=== PATIENT | female | born 1980 ===

== ENCOUNTER 2017-08-16 09:51 | Emergency (ER) | payer OTHER ==
--- NOTE | 2017-08-16 10:18 | C.PDOC ---
History Of Present Illness <Sergo Fisher - Last Filed: 08/16/17 11:46> <Jalyn Singleton - Last Filed: 08/16/17 12:10> 37 y/o F with no pmhx who is presenting with RLE ankle injury. Pt was hiking in [facility] 9 days ago and reports that she tripped and fell. She describes the injury as her toes getting caught on the floor and her falling forward, with hyper plantar flexion injury. She was seen by a medic in [facility] and was told to rest, ice, ibuprofen prn pain, and to keep the ankle wrapped. She states that initially the area was swollen but this has subsided. Additionally, she is able to bear weight on this leg and is no longer needing to take anything for pain relief. She is coming in to make sure there are no fractures. (Sergo Fisher) History Per: Patient Onset/Duration Of Symptoms: Days Current Symptoms Are (Timing): Better Severity: Mild Pain Scale Rating Of: 2 - Ankle/Foot Description Of Injury: Fell, Twisted Alleviating Factor(s): Ice Therapy, Elevation, OTC Pain Medication <Sergo Fisher - Last Filed: 08/16/17 11:46> <Jalyn Singleton - Last Filed: 08/16/17 12:10> Time Seen by Provider: 08/16/17 10:04 Chief Complaint (Nursing): Lower Extremity Problem/Injury Past Medical History - Medical History PMH: No Chronic Diseases Surgical History: No Surg Hx Family History: States: No Known Family Hx - Social History Hx Tobacco Use: No Hx Alcohol Use: Yes Hx Substance Use: No - Immunization History Hx Tetanus Toxoid Vaccination: No Hx Influenza Vaccination: No Hx Pneumococcal Vaccination: No <Sergo Fisher - Last Filed: 08/16/17 11:46> Vital Signs: Last Vital Signs Temp 98.5 F 08/16/17 10:00 Pulse 86 08/16/17 10:00 Resp 18 08/16/17 10:00 BP 108/68 08/16/17 10:00 Pulse Ox 100 08/16/17 11:47 Review Of Systems Constitutional: Negative for: Fever, Chills Eyes: Negative for: Vision Change Cardiovascular: Negative for: Chest Pain, Palpitations Respiratory: Negative for: Cough, Shortness of Breath Gastrointestinal: Negative for: Nausea, Vomiting, Abdominal Pain, Diarrhea Genitourinary: Negative for: Dysuria Musculoskeletal: Positive for: Leg Pain (right ankle) Skin: Negative for: Rash Neurological: Negative for: Weakness, Numbness <Sergo Fisher - Last Filed: 08/16/17 11:46> Physical Exam - Physical Exam Appears: Well, No Acute Distress Skin: Warm, Dry Head: Atraumatic, Normacephalic Eye(s): bilateral: PERRL, EOMI Throat: Normal Chest: Symmetrical, No Deformity Cardiovascular: Rhythm Regular Respiratory: Normal Breath Sounds, No Rales, No Rhonchi Gastrointestinal/Abdominal: Soft, No Tenderness Neurological/Psych: Oriented x3, Normal Speech, Normal Cognition 1 - No gross deformity, mild tenderness to palpation proximal to lateral malleolus, no bruising, 5/5 muscle strength with plantar/dorsi flexion, sensation intact, negative anterior/posterior drawer testing, negative varus/ valgus testing, she has mild calf tenderness of the RLE <Sergo Fisher - Last Filed: 08/16/17 11:46> ED Course And Treatment O2 Sat by Pulse Oximetry: 100 <Sergo Fisher - Last Filed: 08/16/17 11:46> Pulse Ox Interpretation: Normal - Other Rad R ANKLE X-Ray: Interpreted by Me (NEG) - CT Scan/US DOPPLER Other Rad Studies (CT/US): Radiology Report Reviewed (+R DVT) <Jalyn Singleton - Last Filed: 08/16/17 12:10> Supervising Attending Note <Sergo Fisher - Last Filed: 08/16/17 11:46> - Attestation: I have personally seen and examined this patient.: Yes I have fully participated in the care of the patient.: Yes I have reviewed all pertinent clinical information, including history, physical exam and plan: Yes <Jalyn Singleton - Last Filed: 08/16/17 12:10> - Notes: Notes:: SP FALL 1 WEEK AGO. CO R ANKLE INJURY. NSAIDS, ICE AND MANUEL TX. REQUESTING EVAL. NO PRIOR XRAY. SWELLING IMPROVED. +WT BEAR. PS OVERALL FEELS BETTER, JUST CONCERNED FOR POSSIBLE FX. SP AIR TRAVEL 4 DAYS AGO. EXAM ABOVE. +MILD SWELLING R CALF. R ANKLE NO FOCAL TEND, MIN SWELL L LAT MALL AROM WO DIFF. SKIN NEG (Jalyn Singleton) Medical Decision Making <Sergo Fisher - Last Filed: 08/16/17 11:46> <Jalyn Singleton - Last Filed: 08/16/17 12:10> Medical Decision Making: Radiographs were performed to r/o any acute fractures. This report was read as normal; no fractures were identified. Lower extremity dopplers were completed to assess for possible DVT's given the pts calf tenderness of exam and recent travel history. DVT was identified by this study. The patient was started on Lovenox today and was given a script for Xarelto to start tomorrow. The patient denied any pain at rest and did not want any analgesics. (Sergo Fisher) Disposition <Sergo Fisher - Last Filed: 08/16/17 11:46> Counseled Patient/Family Regarding: Studies Performed, Diagnosis, Need For Followup, Rx Given - Disposition Disposition Time: 12:08 <Jalyn Singleton - Last Filed: 08/16/17 12:10> - Disposition Referrals: YOUR,PMD [Other] Disposition: HOME/ ROUTINE Condition: IMPROVED Additional Instructions: YOU MUST SEE YOUR PMD WITHIN 21 DAYS OF STARTED XARELTO THERAPY IN ORDER TO START MORE SECURITY ESCORT THERAPY. RETURN IF WORSENING SYMPTOMS, CHEST PAIN, SHORTNESS OF BREATH. Prescriptions: Rivaroxaban [Xarelto] 15 mg PO BID #42 tab Instructions: Deep Venous Thrombosis (ED), Ankle Sprain (ED) Forms: [employer] (Armenian) - Clinical Impression Clinical Impression: Deep venous thrombosis of lower extremity, Ankle sprain
[2017-08-16 10:22] VITALS: O2SAT 100
--- NOTE | 2017-08-16 11:36 | RAD ---
PROCEDURE: Right Ankle Radiographs. HISTORY: TRAUMA COMPARISON: None FINDINGS: BONES: Normal. No fracture. JOINTS: Normal. No osteoarthritis. Ankle mortise maintained. Talar dome intact SOFT TISSUES: Normal. OTHER FINDINGS: None. IMPRESSION: Normal right ankle radiographs.
[2017-08-16] MEDS ORDERED: Enoxaparin 40 mg Syringe SC STA ×2 (12:07→12:25)
[2017-08-16 12:24] VITALS: BP 106/66; PULSE 70; RESP 16; TEMP 98.2
--- NOTE | 2017-08-16 15:08 | VASCLAB ---
PROCEDURE: Lower Extremity Venous Duplex Exam. HISTORY: SWELLING SP TRAVEL PRIORS: None. TECHNIQUE: Bilateral common femoral, femoral, popliteal and posterior tibial, peroneal and great saphenous veins were evaluated. Flow was assessed with color Doppler, compressibility, assessment of phasic flow and augmentation response. Report prepared by Luis Muniz, ARMAAN, RVT FINDINGS: RIGHT: 1. Common Femoral Vein: 1.1. Compressibility - Fully compressible: Thrombus - None : Flow - Phasic: Augmentation -Normal: Reflux - None. 2. Femoral Vein: 2.1. Compressibility - Fully compressible: Thrombus - None : Flow - Phasic: Augmentation -Normal: Reflux - None. 3. Popliteal Vein: 3.1. Compressibility - Fully compressible: Thrombus - None : Flow - Phasic: Augmentation -Normal: Reflux - None. 4. Posterior Tibial Vein: 4.1. Compressibility - Fully compressible: Thrombus - None: Flow - Phasic: Augmentation -Normal: Reflux - None. 5. Peroneal Vein: 5.1. Compressibility - Fully compressible: Thrombus - None: Flow - Phasic: Augmentation -Normal: Reflux - None. 6. Great Saphenous Vein: 6.1. Compressibility - Fully compressible: Thrombus - None: Flow - Phasic: Augmentation - Normal: Reflux - None. LEFT: 1. Common Femoral Vein: 1.1. Compressibility - Fully compressible: Thrombus - None: Flow - Phasic: Augmentation -Normal: Reflux - None. 2. Femoral Vein: 2.1. Compressibility - Fully compressible: Thrombus - None: Flow - Phasic: Augmentation -Normal: Reflux - None. 3. Popliteal Vein: 3.1. Compressibility - Fully compressible: Thrombus - None : Flow - Phasic: Augmentation -Normal: Reflux - None. 4. Posterior Tibial Vein: 4.1. Compressibility - Fully compressible: Thrombus - None: Flow - Phasic: Augmentation -Normal: Reflux - None. 5. Peroneal Vein: 5.1. Compressibility - Fully compressible: Thrombus - None: Flow - Phasic: Augmentation -Normal: Reflux - None. 6. Great Saphenous Vein: 6.1. Compressibility - Fully compressible: Thrombus - None: Flow - Phasic: Augmentation - Normal: Reflux - None. OTHER FINDINGS: Dr. Singleton notified about the findings. IMPRESSION: Right: Acute thrombosis of the right soleal vein with severe reduction of the venous return. The right common femoral, femoral, popliteal, posterior tibial, peroneal and greater saphenous veins are free form thrombosis Left: No evidence of deep or superficial vein thrombosis of the left lower extremity. Normal valve function noted of the left side.
== END 2017-08-16 12:59 | disposition home or self-care (01) ==
LOC: C.ER 09:51
DX: I82.4Z1 Acute embolism and thrombosis of unspecified deep veins of right distal lower extremity (principal); S93.401A Sprain of unspecified ligament of right ankle, initial encounter; W01.0XXA Fall on same level from slipping, tripping and stumbling without subsequent striking against object, initial encounter; Y93.01 Activity, walking, marching and hiking
CPT/HCPCS: 73610; 93970; 96372; 99284; J1650